=== PATIENT | male | born 1995 | race Caucasian/White ===

== ENCOUNTER 2016-08-12 11:36 | Emergency (ER) | payer MEDICAID ==
[2016-08-12 11:36] VITALS: BMI 21.4
[2016-08-12 12:07] VITALS: BP 121/75; PULSE 87; RESP 18; TEMP 97.9; O2SAT 99
[2016-08-12] MEDS ORDERED: Amoxicillin-Clav 500-125 mg Tab PO STA (12:12)
[2016-08-12] MEDS ORDERED: guaiFENesin 200 mg/10 ml Syrup UD PO STA (12:12)
--- NOTE | 2016-08-12 12:16 | ED PDOC ---
Arrival/HPI - General Chief Complaint: Cough, Cold, Congestion Time Seen by Provider: 08/12/16 12:12 Historian: Patient - History of Present Illness Narrative History of Present Illness (Text): 08/12/16 12:13 20yo male with no PMHx present with 3days history of sore throat, nonproductive cough, rhinorrhea, nasal congestion, facial pain. states he takes allergy medication for seasonal allergies. denies fever, chills, sick contact, travel, any other complaint. Past Medical History - Provider Review Nursing Documentation Reviewed: Yes - Past History Past History: No Previous - Infectious Disease Hx of Infectious Diseases: None - Tetanus Immunization Tetanus Immunization: Up to Date - Cardiac Hx Cardiac Disorders: No - Pulmonary Hx Respiratory Disorders: Yes Hx Asthma: Yes - Neurological Hx Neurological Disorder: No - HEENT Hx HEENT Disorder: No - Renal Hx Renal Disorder: No - Endocrine/Metabolic Hx Endocrine Disorders: No - Hematological/Oncological Hx Blood Disorders: No - Integumentary Hx Dermatological Disorder: No - Musculoskeletal/Rheumatological Hx Musculoskeletal Disorders: No - Gastrointestinal Hx Gastrointestinal Disorders: No - Genitourinary/Gynecological Hx Genitourinary Disorders: No - Psychiatric Hx Psychophysiologic Disorder: No Hx Depression: No Hx Emotional Abuse: No Hx Physical Abuse: No Hx Substance Use: No - Past Surgical History Past Surgical History: No Previous - Anesthesia Hx Anesthesia: No Hx Anesthesia Reactions: No - Suicidal Assessment Feels Threatened In Home Enviroment: No Family/Social History - Physician Review Nursing Documentation Reviewed: Yes Family/Social History: Unknown Family HX Smoking Status: Never Smoked Hx Alcohol Use: No Hx Substance Use: No Allergies/Home Meds Allergies/Adverse Reactions: Allergies ORANGE Allergy (Verified 08/12/16 12:08) ANAPHYLAXIS peanut Allergy (Verified 08/12/16 12:08) ANAPHYLAXIS Review of Systems - Physician Review All systems were reviewed & negative as marked: Yes - Review of Systems Constitutional: Normal Eyes: Normal ENT: Sore Throat, Rhinorrhea, Sinus Congestion Respiratory: Cough. absent: SOB, Sputum, Wheezing Cardiovascular: Normal Gastrointestinal: Normal Genitourinary Male: Normal Musculoskeletal: Normal Skin: Normal Neurological: Normal Endocrine: Normal Hemo/Lymphatic: Normal Psychiatric: Normal Physical Exam Vital Signs Reviewed: Yes Vital Signs Temp Pulse Resp BP Pulse Ox 08/12/16 12:03 97.9 F 87 18 121/75 99 Temperature: Afebrile Blood Pressure: Normal Pulse: Regular Respiratory Rate: Normal Appearance: Positive for: Well-Appearing, Non-Toxic, Comfortable Pain Distress: None Mental Status: Positive for: Alert and Oriented X 3 - Systems Exam Head: Present: Atraumatic, Normocephalic Pupils: Present: PERRL Extroacular Muscles: Present: EOMI Conjunctiva: Present: Normal Ears: Present: Normal Mouth: Present: Moist Mucous Membranes. No: Drooling Pharnyx: Present: ERYTHEMA. No: EXUDATE, TONSILS ENLARGED, Peritonsilar Swelling, Uvular Deviation, Muffled/Hoarse Voice, Strider, Soft Palate/Uvular Edema Nose (Internal): Present: Edematous (B/L), Other (Tenderness over the maxillary sinuses) Neck: Present: Normal Range of Motion Respiratory/Chest: Present: Clear to Auscultation, Good Air Exchange. No: Respiratory Distress, Accessory Muscle Use Cardiovascular: Present: Regular Rate and Rhythm, Normal S1, S2. No: Murmurs Abdomen: Present: Normal Bowel Sounds. No: Tenderness, Distention, Peritoneal Signs Back: Present: Normal Inspection Upper Extremity: Present: Normal Inspection. No: Cyanosis, Edema Lower Extremity: Present: Normal Inspection. No: Edema Neurological: Present: GCS=15, CN II-XII Intact, Speech Normal Skin: Present: Warm, Dry, Normal Color. No: Rashes Psychiatric: Present: Alert, Oriented x 3, Normal Insight, Normal Concentration Disposition/Present on Arrival - Present on Arrival Any Indicators Present on Arrival: No History of DVT/PE: No History of Uncontrolled Diabetes: No Urinary Catheter: No History of Decub. Ulcer: No History Surgical Site Infection Following: None - Disposition Have Diagnosis and Disposition been Completed?: Yes Diagnosis: Acute URI Disposition: HOME/ ROUTINE Disposition Time: 12:20 Patient Plan: Discharge Condition: STABLE Discharge Instructions (ExitCare): Upper Respiratory Infection (ED) Additional Instructions: Take medication, drink plenty of fluid and rest Follow up with your Doctor Return to ED for any new or worsening symptoms Prescriptions: Albuterol HFA [Ventolin HFA 90 mcg/actuation (8 g)] 2 puff IH [id number] #1 puff Amoxicillin/Potassium Clav [Augmentin 500 mg-125 mg] 1 tab PO BID #14 tab Benzonatate [Tessalon Perles] 100 mg PO TID #20 tab Referrals: [facility] at [facility] [place] [Outside] - Follow up with primary Forms: WORK NOTE
== END 2016-08-12 12:46 | disposition home or self-care (01) ==
LOC: ED 11:36
DX: J06.9 Acute upper respiratory infection, unspecified (principal)

== ENCOUNTER 2016-09-22 21:41 | Emergency (ER) | payer MEDICAID ==
[2016-09-22 21:58] VITALS: BMI 20.4
[2016-09-22 22:02] VITALS: BP 115/75; PULSE 70; RESP 18; TEMP 97.8; O2SAT 98
--- NOTE | 2016-09-22 22:14 | ED PDOC ---
Arrival/HPI - General Chief Complaint: Lower Extremity Problem/Injury Time Seen by Provider: 09/22/16 22:10 Historian: Patient - History of Present Illness Narrative History of Present Illness (Text): 09/22/16 22:10 20 y/o male, no significant pmh, nkda, here for the evaluation of the lt. knee and rt. ankle x 1 day. Pt. stated that he twisted the lt. knee and rt. ankle today, able to bear weight, walking with no limping, didn't go to work today. Pt. has no calf pain, no pain medication taken at home, no chest pain or shortness of breath, no other medical or psychological complaints. Past Medical History - Provider Review Nursing Documentation Reviewed: Yes - Past History Past History: No Previous - Infectious Disease Hx of Infectious Diseases: None - Tetanus Immunization Tetanus Immunization: Up to Date - Cardiac Hx Cardiac Disorders: No - Pulmonary Hx Respiratory Disorders: Yes Hx Asthma: Yes - Neurological Hx Neurological Disorder: No - HEENT Hx HEENT Disorder: No - Renal Hx Renal Disorder: No - Endocrine/Metabolic Hx Endocrine Disorders: No - Hematological/Oncological Hx Blood Disorders: No - Integumentary Hx Dermatological Disorder: No - Musculoskeletal/Rheumatological Hx Musculoskeletal Disorders: No - Gastrointestinal Hx Gastrointestinal Disorders: No - Genitourinary/Gynecological Hx Genitourinary Disorders: No - Psychiatric Hx Psychophysiologic Disorder: No Hx Depression: No Hx Emotional Abuse: No Hx Physical Abuse: No Hx Substance Use: No - Past Surgical History Past Surgical History: No Previous - Anesthesia Hx Anesthesia: No Hx Anesthesia Reactions: No - Suicidal Assessment Feels Threatened In Home Enviroment: No Family/Social History - Physician Review Nursing Documentation Reviewed: Yes Family/Social History: Unknown Family HX Smoking Status: Never Smoked Hx Alcohol Use: No Hx Substance Use: No Allergies/Home Meds Allergies/Adverse Reactions: Allergies ORANGE Allergy (Verified 08/12/16 12:08) ANAPHYLAXIS peanut Allergy (Verified 08/12/16 12:08) ANAPHYLAXIS Review of Systems - Review of Systems Constitutional: absent: Fatigue, Fevers Eyes: absent: Vision Changes ENT: absent: Hearing Changes Respiratory: absent: Cough Cardiovascular: absent: Chest Pain Gastrointestinal: absent: Abdominal Pain, Nausea, Vomiting Musculoskeletal: Arthralgias. absent: Back Pain, Neck Pain, Joint Swelling, Myalgias Psychiatric: absent: Anxiety, Depression, Suicidal Ideation Physical Exam Vital Signs Reviewed: Yes Vital Signs Temp Pulse Resp BP Pulse Ox 09/22/16 22:00 97.8 F 70 18 115/75 98 Temperature: Afebrile Blood Pressure: Normal Pulse: Regular Respiratory Rate: Normal Appearance: Positive for: Well-Appearing, Non-Toxic, Comfortable Pain Distress: Mild Mental Status: Positive for: Alert and Oriented X 3 - Systems Exam Head: Present: Atraumatic, Normocephalic Pupils: Present: PERRL Extroacular Muscles: Present: EOMI Conjunctiva: Present: Normal Mouth: Present: Moist Mucous Membranes Neck: Present: Normal Range of Motion Respiratory/Chest: Present: Clear to Auscultation, Good Air Exchange. No: Respiratory Distress, Accessory Muscle Use Cardiovascular: Present: Regular Rate and Rhythm, Normal S1, S2. No: Murmurs Abdomen: Present: Normal Bowel Sounds. No: Tenderness, Distention, Peritoneal Signs Back: Present: Normal Inspection Upper Extremity: Present: Normal Inspection. No: Cyanosis, Edema Lower Extremity: Present: Normal Inspection, Other (Bilateral lower extremities : lt. knee with no tenderness or swelling, rt. ankle with no tenderness or swelling, negative stephen and blandon signs, FROM without limitation, sensation intact, motor 5/5, +DPPT pulses, +radial pulses.). No: Edema Neurological: Present: GCS=15, CN II-XII Intact, Speech Normal Skin: Present: Warm, Dry, Normal Color. No: Rashes Psychiatric: Present: Alert, Oriented x 3, Normal Insight, Normal Concentration Medical Decision Making ED Course and Treatment: 09/22/16 22:13 -there is no indication of the radiology studies as the patient is walking with no limping, refused leon wrap. -Discharge home with motrin, ice compression, no gym or exercise x 7 days, follow up with your own pmd and orthopedic within 2 days, return to the ER for any new or worsening signs or symptoms. - Medication Orders Current Medication Orders: Ibuprofen (Motrin Tab) 600 mg PO STAT STA Stop: 09/22/16 22:11 - PA / ROUTE SALES PERSON / Resident Statement / has reviewed & agrees with the documentation as recorded. Disposition/Present on Arrival - Present on Arrival Any Indicators Present on Arrival: No History of DVT/PE: No History of Uncontrolled Diabetes: No Urinary Catheter: No History of Decub. Ulcer: No History Surgical Site Infection Following: None - Disposition Have Diagnosis and Disposition been Completed?: Yes Diagnosis: Arthralgia Disposition: HOME/ ROUTINE Disposition Time: 22:14 Patient Plan: Discharge Condition: GOOD Additional Instructions: Discharge home with motrin, ice compression, no gym or exercise x 7 days, follow up with your own pmd and orthopedic within 2 days, return to the ER for any new or worsening signs or symptoms. Prescriptions: Ibuprofen [Motrin] 600 mg PO QID PRN #24 tab PRN Reason: Other Referrals: Aislinn Arceo MD [Primary Care Provider] - Follow up with primary Dianne Zimmer MD [Staff Provider] - Follow up with primary Forms: WORK NOTE
== END 2016-09-22 22:23 | disposition home or self-care (01) ==
LOC: ED 21:41
DX: M25.562 Pain in left knee (principal); M25.571 Pain in right ankle and joints of right foot

== ENCOUNTER 2016-09-26 13:33 | Emergency (ER) | payer MEDICAID ==
[2016-09-26 14:01] VITALS: BP 117/79; PULSE 78; RESP 18; TEMP 98.4; O2SAT 100; BMI 20.5
== END 2016-09-26 14:30 | disposition left against medical advice (07) ==
LOC: ED 13:33
DX: Z02.89 Encounter for other administrative examinations (principal); M25.571 Pain in right ankle and joints of right foot

== ENCOUNTER 2017-05-26 19:39 | Emergency (ER) | payer MEDICAID ==
[2017-05-26 19:39] VITALS: BMI 20.5
[2017-05-26 19:44] VITALS: RESP 18
--- NOTE | 2017-05-26 20:20 | ED PDOC ---
Arrival/HPI - General Chief Complaint: Flu-like Symptoms Time Seen by Provider: 05/26/17 19:50 Historian: Patient - History of Present Illness Narrative History of Present Illness (Text): 05/26/17 20:17 21yo male with no PMhx who present with two days history of nonproductive cough , fever, body ache , diarrhea and vomiting. He reports 2episodes of diarrhea and vomiting yesterday. He was able to tolerate PO food and drink today. States he took unknown abx that his mother gave him today. He denies sore throat, ear pain, abdominal pain, sick contact, travel. Past Medical History - Provider Review Nursing Documentation Reviewed: Yes - Past History Past History: No Previous - Infectious Disease Hx of Infectious Diseases: None - Tetanus Immunization Tetanus Immunization: Up to Date - Cardiac Hx Cardiac Disorders: No - Pulmonary Hx Respiratory Disorders: Yes Hx Asthma: Yes - Neurological Hx Neurological Disorder: No - HEENT Hx HEENT Disorder: No - Renal Hx Renal Disorder: No - Endocrine/Metabolic Hx Endocrine Disorders: No - Hematological/Oncological Hx Blood Disorders: No - Integumentary Hx Dermatological Disorder: No - Musculoskeletal/Rheumatological Hx Musculoskeletal Disorders: No - Gastrointestinal Hx Gastrointestinal Disorders: No - Genitourinary/Gynecological Hx Genitourinary Disorders: No - Psychiatric Hx Psychophysiologic Disorder: Yes Hx Anxiety: Yes Hx Depression: Yes Hx Emotional Abuse: No Hx Physical Abuse: No Hx Substance Use: No - Past Surgical History Past Surgical History: No Previous - Anesthesia Hx Anesthesia: No Hx Anesthesia Reactions: No - Suicidal Assessment Feels Threatened In Home Enviroment: No Family/Social History - Physician Review Nursing Documentation Reviewed: Yes Family/Social History: Unknown Family HX Smoking Status: Never Smoked Hx Alcohol Use: No Hx Substance Use: No Allergies/Home Meds Allergies/Adverse Reactions: Allergies ORANGE Allergy (Verified 05/26/17 19:41) ANAPHYLAXIS peanut Allergy (Verified 05/26/17 19:41) ANAPHYLAXIS Review of Systems - Physician Review All systems were reviewed & negative as marked: Yes - Review of Systems Constitutional: Fatigue Eyes: Normal ENT: Normal Respiratory: Cough. absent: SOB, Sputum, Wheezing Cardiovascular: Normal Gastrointestinal: Diarrhea, Vomiting. absent: Abdominal Pain, Constipation, Nausea, Hematochezia, Hematemesis Genitourinary Male: Normal Musculoskeletal: Normal Skin: Normal Neurological: Normal Endocrine: Normal Hemo/Lymphatic: Normal Psychiatric: Normal Physical Exam Vital Signs Reviewed: Yes Vital Signs Temp Pulse Resp BP Pulse Ox 05/26/17 19:43 99.2 F 105 H 18 115/65 96 Temperature: Afebrile Blood Pressure: Normal Pulse: Regular Respiratory Rate: Normal Appearance: Positive for: Well-Appearing, Non-Toxic, Comfortable Pain Distress: None Mental Status: Positive for: Alert and Oriented X 3 - Systems Exam Head: Present: Atraumatic, Normocephalic Pupils: Present: PERRL Extroacular Muscles: Present: EOMI Conjunctiva: Present: Normal Mouth: Present: Moist Mucous Membranes Neck: Present: Normal Range of Motion Respiratory/Chest: Present: Clear to Auscultation, Good Air Exchange. No: Respiratory Distress, Accessory Muscle Use Cardiovascular: Present: Regular Rate and Rhythm, Normal S1, S2. No: Murmurs Abdomen: Present: Normal Bowel Sounds, Other (Soft). No: Tenderness, Distention , Peritoneal Signs, Rebound, Guarding, McBurney's Point Tender, Rovsing's Sign Present Back: Present: Normal Inspection Upper Extremity: Present: Normal Inspection. No: Cyanosis, Edema Lower Extremity: Present: Normal Inspection. No: Edema Neurological: Present: GCS=15, CN II-XII Intact, Speech Normal Skin: Present: Warm, Dry, Normal Color. No: Rashes Psychiatric: Present: Alert, Oriented x 3, Normal Insight, Normal Concentration Medical Decision Making ED Course and Treatment: 05/26/17 21:34 Pt in ED for stated history. He states he was able to eat and drink today without vomiting/diarrhea. He was not lethargic. He have no PMHx. Rapid flu was negative. CXR ?RUL infiltrate. Rapid flu - negative Secondary to the flu symptoms pt will be DC home with Tamiflu and Zpack. Antitussive given. Advised to drink plenty of fluid and rest. Referred to his PMD. TRT ED for any new or worsening symptoms. - Lab Interpretations Lab Results: Lab Results 05/26/17 20:00: Urine Color Yellow, Urine Appearance Clear, Urine pH 7.5, Ur Specific [place] 1.020, Urine Protein Trace H, Urine Glucose (UA) Negative, Urine Ketones Negative, Urine Blood Negative, Urine Nitrate Negative, Urine Bilirubin Negative, Urine Urobilinogen 2.0 H, Ur Leukocyte Esterase Negative, Urine RBC Negative, Urine WBC 1 - 3, Ur Epithelial Cells 0 - 2, Urine Bacteria Few 05/26/17 20:00: Influenza Typ A,B (EIA) Negative for flu a/b - RAD Interpretation Radiology Orders: 05/26/17 20:04 CHEST TWO VIEWS (PA/LAT) [RAD] Stat - Medication Orders Current Medication Orders: Discontinued Medications Ibuprofen (Motrin Tab) 600 mg PO STAT STA Stop: 05/26/17 20:06 Last Admin: 05/26/17 20:36 Dose: 600 mg MAR Pain/Vitals Document 05/26/17 20:36 OCS (Rec: 05/26/17 20:36 [place] [facility] [id number] Pain Reassessment Is This A Pain ReAssessment? Yes Sleep Is patient sleeping during reassessment? No Presence of Pain Presence of Pain Yes Ondansetron HCl (Zofran Odt) 4 mg PO STAT STA Stop: 05/26/17 20:12 Last Admin: 05/26/17 20:36 Dose: 4 mg Disposition/Present on Arrival - Present on Arrival Any Indicators Present on Arrival: No History of DVT/PE: No History of Uncontrolled Diabetes: No Urinary Catheter: No History of Decub. Ulcer: No History Surgical Site Infection Following: None - Disposition Have Diagnosis and Disposition been Completed?: Yes Diagnosis: Pneumonia, Flu-like symptoms Disposition: HOME/ ROUTINE Disposition Time: 21:40 Patient Plan: Discharge Condition: STABLE Discharge Instructions (ExitCare): Pneumonia (ED) Additional Instructions: Follow up with your Doctor Return to ED for any new or worsening symptoms Prescriptions: Azithromycin [Zithromax] 250 mg PO DAILY #4 tab Oseltamivir Phosphate [Tamiflu] 75 mg PO BID #10 capsule Promethazine [Phenergan Syrup] 6.25 mg PO Q6 #100 ml Forms: [employer] ([place])
[2017-05-26 20:46] LABS: PH,URINE 7.5 (4.7-8.0); URINE BILIRUBIN NEGATIVE (NEGATIVE); URINE BLOOD NEGATIVE (NEGATIVE); URINE GLUCOSE (UA) NEGATIVE (NEGATIVE); URINE LEUKOCYTE ESTERASE NEGATIVE Leu/uL (NEGATIVE); URINE NITRATE NEGATIVE (NEGATIVE); URINE PROTEIN TRACE mg/dL (<30 mg/dL)
[2017-05-26 20:47] LABS: URINE APPEARANCE CLEAR (CLEAR); URINE COLOR YELLOW (YELLOW)
[2017-05-26 20:58] LABS: URINE BACTERIA FEW (NEG); URINE EPITHELIAL CELLS 0 - 2 /hpf (0-5); URINE RBC NEGATIVE /hpf (0-2)
[2017-05-26] MEDS ORDERED: Promethazine 6.25 MG/5 ML CUP PO STA (21:33)
[2017-05-26 22:11] VITALS: BP 120/70; PULSE 90; TEMP 98.9; O2SAT 98
--- NOTE | 2017-05-27 08:29 | RAD ---
HISTORY: COMPARISON: 01/01/2016 TECHNIQUE: Chest PA and lateral FINDINGS: LINES AND TUBES: None. LUNG AND PLEURA: The lungs are well inflated. There is focal consolidation in the right upper lobe. The left lung is clear. HEART AND MEDIASTINUM: The heart is not enlarged. The hilar and mediastinal contours are within normal limits. SKELETAL STRUCTURES: The bony structures are within normal limits for the patient's age. VISUALIZED UPPER ABDOMEN: Normal. OTHER FINDINGS: None. IMPRESSION: Right upper lobe pneumonia. Follow-up after medical management is recommended to ensure complete resolution.
== END 2017-05-26 22:00 | disposition home or self-care (01) ==
LOC: ED 19:39
DX: J18.9 Pneumonia, unspecified organism (principal); J11.1 Influenza due to unidentified influenza virus with other respiratory manifestations

== ENCOUNTER 2017-06-15 20:10 | Emergency (ER) | payer MEDICAID ==
[2017-06-15 22:08] VITALS: BMI 22.3
[2017-06-15 22:12] VITALS: RESP 16; O2SAT 99
--- NOTE | 2017-06-16 00:03 | ED PDOC ---
Arrival/HPI - General Chief Complaint: Finger,Hand,&Wrist Time Seen by Provider: 06/15/17 23:53 Historian: Patient EM Caveat: Acuity of Condition - History of Present Illness Narrative History of Present Illness (Text): 06/15/17 23:57 Pt is a 21 yo male who presents with a tender and bruise right wrist s/ p punching a wooden cabinet at home last night. Pt also c/o stomach pain in the left upper quadrant and epigastric region while eating x 10 days. Pt describes a sensation of burning and gas-like fullness and has nausea and non-watery or bloody diarrhea. Denies eating spicy foods, taking NSAIDs, GIB or acute abdominal pain that refers, also denies fever, chills, vomiting. Time/Duration: 24 hours Symptom Onset: Sudden Symptom Course: Unchanged Quality: Aching, Pressure Severity Level: Mild Context: Home Past Medical History - Provider Review Nursing Documentation Reviewed: Yes - Travel History Have you recently traveled outside [place] w/in the past 3 mons?: No - Past History Past History: No Previous - Infectious Disease Hx of Infectious Diseases: None - Tetanus Immunization Tetanus Immunization: Up to Date - Cardiac Hx Cardiac Disorders: No - Pulmonary Hx Respiratory Disorders: Yes Hx Asthma: Yes - Neurological Hx Neurological Disorder: No - HEENT Hx HEENT Disorder: No - Renal Hx Renal Disorder: No - Endocrine/Metabolic Hx Endocrine Disorders: No - Hematological/Oncological Hx Blood Disorders: No - Integumentary Hx Dermatological Disorder: No - Musculoskeletal/Rheumatological Hx Musculoskeletal Disorders: No - Gastrointestinal Hx Gastrointestinal Disorders: No - Genitourinary/Gynecological Hx Genitourinary Disorders: No - Psychiatric Hx Psychophysiologic Disorder: Yes Hx Anxiety: Yes Hx Depression: Yes Hx Emotional Abuse: No Hx Physical Abuse: No Hx Substance Use: No - Past Surgical History Past Surgical History: No Previous - Anesthesia Hx Anesthesia: No Hx Anesthesia Reactions: No - Suicidal Assessment Feels Threatened In Home Enviroment: No Family/Social History - Physician Review Nursing Documentation Reviewed: Yes Family/Social History: Unknown Family HX Smoking Status: Never Smoked Hx Alcohol Use: No Hx Substance Use: No Allergies/Home Meds Allergies/Adverse Reactions: Allergies ORANGE Allergy (Verified 05/26/17 19:41) ANAPHYLAXIS peanut Allergy (Verified 05/26/17 19:41) ANAPHYLAXIS Review of Systems - Review of Systems Constitutional: Normal Eyes: Normal ENT: Normal Respiratory: Normal Cardiovascular: Normal Gastrointestinal: Normal, Abdominal Pain, Diarrhea, Nausea, Appetite Changes Genitourinary Male: Normal Musculoskeletal: Normal Skin: Normal, Other (right lateral wrist abrasion and bruising) Neurological: Normal Endocrine: Normal Hemo/Lymphatic: Normal Psychiatric: Normal Physical Exam Vital Signs Reviewed: Yes Vital Signs Temp Pulse Resp BP Pulse Ox 06/16/17 02:16 98.9 F 72 16 124/84 99 06/15/17 22:08 97.8 F 63 16 99 Temperature: Afebrile Blood Pressure: Normal Pulse: Regular Respiratory Rate: Normal Appearance: Positive for: Well-Appearing, Non-Toxic, Comfortable Pain Distress: None Mental Status: Positive for: Alert and Oriented X 3 - Systems Exam Head: Present: Atraumatic, Normocephalic Pupils: Present: PERRL Extroacular Muscles: Present: EOMI Conjunctiva: Present: Normal Mouth: Present: Moist Mucous Membranes Neck: Present: Normal Range of Motion Respiratory/Chest: Present: Clear to Auscultation, Good Air Exchange. No: Respiratory Distress, Accessory Muscle Use Cardiovascular: Present: Regular Rate and Rhythm, Normal S1, S2. No: Murmurs Abdomen: Present: Tenderness (LUQ and epigastric), Normal Bowel Sounds. No: Distention, Peritoneal Signs, Rebound, Guarding, McBurney's Point Tender, Rovsing's Sign Present, Hernias, Feeding Tubes, Ostomy Tubes, Mass/Organomegaly , Scars, Other Back: Present: Normal Inspection Upper Extremity: Present: Normal Inspection, Tenderness (Right lateral wrist ), Swelling, Erythema. No: Cyanosis, Edema Lower Extremity: Present: Normal Inspection. No: Edema Neurological: Present: GCS=15, CN II-XII Intact, Speech Normal Skin: Present: Warm, Dry, Normal Color, Abrasion (R lateral wrist ). No: Rashes Psychiatric: Present: Alert, Oriented x 3, Normal Insight, Normal Concentration Medical Decision Making ED Course and Treatment: 06/16/17 00:03 Impression Pt is a 21 yo male who presents with a tender and bruise right wrist s/ p punching a wooden cabinet at home last night. Pt also c/o stomach pain in the left upper quadrant and epigastric region while eating x 10 days. Plan Right wrist XR 3 views cbc, cmp, amylase and lipase Progress Note Right wrist XR unremarkable according to unofficial view Right Spencer wrist support brace with instructions on how long to wear it and active, gentle ROM daily PPI given Rx of omeprazole for home advised to f/u for PUD Spencer Wrist support serial #[id number], Record #[id number] Sz M/L - Lab Interpretations Lab Results: 06/16/17 00:15 06/16/17 00:15 Lab Results 06/16/17 00:15: Sodium 143, Potassium 4.4, Chloride 102, Carbon Dioxide 29, Anion Gap 16, BUN 13, Creatinine 0.8, Est GFR ( Amer) > 60, Est GFR (Non- Af Amer) > 60, Random Glucose 79, Calcium 10.2, Total Bilirubin 1.1, AST 30, ALT 29, Alkaline Phosphatase 77, Total Protein 8.0, Albumin 4.7, Globulin 3.3, Albumin/Globulin Ratio 1.4, Amylase 79, Lipase 74 06/16/17 00:15: WBC 7.1, RBC 5.24, Hgb 16.0, Hct 46.8, MCV 89.3, MCH 30.5, MCHC 34.2, RDW 12.4, Plt Count 189, MPV 11.4 H I have reviewed the lab results: Yes - RAD Interpretation Narrative RAD Interpretations (Text): 06/16/17 01:48 Unremarkable for fracture or dislocation Radiology Orders: 06/15/17 23:53 WRIST, RIGHT 3 VIEWS [RAD] Stat Dental Equipment Installer And Servicer: ED Physician Disposition/Present on Arrival - Present on Arrival Any Indicators Present on Arrival: Yes History of DVT/PE: No History of Uncontrolled Diabetes: No Urinary Catheter: No History of Decub. Ulcer: No History Surgical Site Infection Following: None - Disposition Have Diagnosis and Disposition been Completed?: Yes Diagnosis: Right wrist sprain, Gastritis Disposition: HOME/ ROUTINE Disposition Time: 01:59 Patient Plan: Discharge Condition: GOOD Discharge Instructions (ExitCare): Gastritis (ED), Wrist Injury (ED) Additional Instructions: Please follow up with your Primary doctor in the next 3 days to be assessed for further gastrointestinal studies if warranted. Take the medication we prescribed, 30 minutes before eating on an empty stomach If you develop alarming symptoms such as chest pain, shortness of breath, severe abdominal pain or fever, return to the ER as soon as possible. All the best Prescriptions: Arm Brace [Wrist Brace] 1 each MC Q6 5 Days #1 each Omeprazole 20 mg PO Q12 5 Days #10 tablet. [facility], [Non-Staff] - Follow up with primary Forms: Attributor (Syrian), WORK NOTE
[2017-06-16 00:35] LABS: MEAN CELL VOLUME 89.3 fl (80.0-105.0); MEAN CORPUSCULAR HEMOGLOBIN 30.5 pg (25.0-35.0); MEAN CORPUSCULAR HGB CONC 34.2 g/dl (31.0-37.0); MEAN PLATELET VOLUME 11.4 fl (7.0-11.0); RBC 5.24 10^6/uL (3.5-6.1); RED CELL DISTRIBUTION WIDTH 12.4 % (11.5-14.5); WHITE BLOOD COUNT 7.1 10^3/ul (4.5-11.0)
[2017-06-16 00:51] LABS: ALB/GLOB RATIO 1.4 (1.1-1.8); ALBUMIN 4.7 g/dL (3.0-4.8); ALT/SGPT 29 U/L (7-56); AMYLASE 79 U/L (35-125); AST/SGOT 30 U/L (17-59); BLOOD UREA NITROGEN 13 mg/dL (7-21); CALCIUM 10.2 mg/dL (8.4-10.5); GFR AFRICAN-AMERICAN > 60; GFR NON-AFRICAN AMERICAN > 60; LIPASE 74 U/L (23-300)
[2017-06-16 02:16] VITALS: BP 124/84; PULSE 72; TEMP 98.9
--- NOTE | 2017-06-16 10:31 | RAD ---
PROCEDURE: Right Wrist Radiographs. HISTORY: Unspecified wrist injury presenting with pain COMPARISON: None. FINDINGS: BONES: Normal. No fracture. JOINTS: Normal. No dislocation. SOFT TISSUES: Normal. OTHER FINDINGS: None. IMPRESSION: Normal right wrist radiographs.
== END 2017-06-16 02:16 | disposition home or self-care (01) ==
LOC: ED 20:10
DX: K29.70 Gastritis, unspecified, without bleeding (principal); S63.501A Unspecified sprain of right wrist, initial encounter; W22.03XA Walked into furniture, initial encounter; Y92.009 Unspecified place in unspecified non-institutional (private) residence as the place of occurrence of the external cause

== ENCOUNTER 2018-09-24 16:16 | Emergency (ER) | payer MEDICAID, OTHER ==
[2018-09-24 16:16] VITALS: BMI 22.3
[2018-09-24 16:28] VITALS: TEMP 98.7
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
[2018-09-24 18:56] VITALS: BP 131/85; PULSE 68; RESP 18; O2SAT 100
== END 2018-09-24 19:07 | disposition home or self-care (01) ==
LOC: ED 16:16
DX: J06.9 Acute upper respiratory infection, unspecified (principal)